=== PATIENT | male | born 1950 | race Caucasian/White ===

== ENCOUNTER 2017-01-06 15:54 | Emergency (ER) | payer BC, OTHER ==
[~2017-01-06] VITALS: Ht 198.1 cm; Wt 106.0 kg
[~2017-01-06 15:54] MED LIST: APIX1TAB3 PO; GABA-113 PO; GLCSR500 PO; IBUP-1050 PO; INSDGI SC; LEVO75TA5 PO; NRN600 PO; NVLGI SC; SIMV40TA2 PO
[2017-01-06 15:57] VITALS: Ht 198.1 cm; Wt 106.0 kg
[2017-01-06] MEDS ORDERED: SODIUM CHLORIDE 0.9% 1000ML 1,000 ML IV STA (16:10)
[2017-01-06 16:13] VITALS: O2SAT 97
[2017-01-06 16:31] LABS: BASO % 0.6 %; BASO ABS # 0.05 K/uL (0-0.2); COMPLETE YES; EOS % 2.3 %; HEMATOCRIT 43.4 % (42-52); IG% 0.1 %; LYMPH % 22.8 %; MEAN CELL VOLUME 91.4 fL (80-100); MEAN PLATELET VOLUME 10.3 fL (7.4-10.4); MONO % 7.7 %; NEUT % 66.5 %; PLATELET COUNT 215 K/uL (130-400); RED BLOOD COUNT 4.75 M/uL (4.7-6.1)
[2017-01-06 16:36] LABS: URINE APPEARANCE TURBID (CLEAR); URINE COLOR RED; URINE NITRITE NEG (NEG); URINE SPECIFIC GRAVITY 1.027 (1.000-1.030); UROBILINOGEN NEG (NEG)
[2017-01-06 16:38] LABS: PROTHROMBIN TIME (PATIENT) 10.9 SECONDS (9.0-12.0)
[2017-01-06 16:47] LABS: BUN/CREATININE RATIO 17.3 (10-20); CALCIUM 9.5 mg/dl (8.5-10.1); CREATININE 1.2 mg/dl (0.60-1.40)
[2017-01-06 16:50] LABS: MANUAL MICROSCOPIC REQUIRED? NO; REVIEW REQ? YES; URINE BILIRUBIN NEG (NEG)
[2017-01-06 16:50] LABS: ALB/GLOB RATIO 1.1 (0.9-2)
[2017-01-06 16:53] LABS: ZZUR CULT IF INDIC CLEAN CATCH YES
[2017-01-06] MEDS ORDERED: INSDGIPEN SC (17:01)
[2017-01-06] MEDS ORDERED: METF1000 PO (17:01)
[2017-01-06] MEDS ORDERED: NRN600 PO (17:01)
--- NOTE | 2017-01-06 17:19 | DIAGNOSTIC IMAGING REPORT ---
ABDOMEN AND PELVIS CT WITHOUT CONTRAST CT DOSE: 1618.20 mGy.cm HISTORY: Hx renal calculi, Painless hematuria, TECHNIQUE: Multiaxial CT images of the abdomen and pelvis were performed without the use of intravenous and oral contrast according to the standard department stone protocol. A dose lowering technique was utilized adhering to the principles of ALARA. COMPARISON STUDY: Abdomen and pelvis CT 10/27/2010. FINDINGS: Mild bibasilar subsegmental atelectasis. Pacemaker wires are noted. No fractures within the visualized osseous structures. The unenhanced liver, gallbladder, pancreas, and adrenal glands are unremarkable. Lobular appearance to the spleen, unchanged. Mild bilateral perinephric edema which is not significantly changed. Multiple bilateral peripelvic renal cysts. There is a punctate stone within the upper pole the left kidney. There is also a 2 mm stone at the left ureteropelvic junction best seen on image 186. No significant left side hydronephrosis. The dominant left peripelvic cyst has decreased in size. Prostate gland is mildly enlarged. Normal bladder. Fat-containing left inguinal hernia, unchanged. Suboptimal evaluation for bowel pathology due to the lack of intravenous and oral contrast. However, there is no definite bowel wall thickening or obstruction. Normal appendix. IMPRESSION: 1. There is a 2 mm stone at the left ureteropelvic junction. However, there is no significant hydronephrosis. Therefore, this favors a nonobstructing stone. 2. There is also a punctate stone within the upper pole of the left kidney. 3. No right renal stones. 4. Bilateral peripelvic renal cysts are again noted. 3. No bowel wall thickening or obstruction. Electronically signed by: Ed Marsh M.D. 01/06/2017 5:18 PM Dictated Date/Time: 01/06/2017 5:10 PM
--- NOTE | 2017-01-06 18:02 | EMERGENCY ROOM VISIT NOTE ---
History First contact with patient: 16:00 Chief Complaint: URINARY SYMPTOMS Stated Complaint: BLOOD IN URINE Nursing Triage Summary: Triage Notes: Patient ambulatory to triage with a steady and upright gait, states "I have blood in my urine that started two days ago. About 30 minutes ago, there was a significant amount. I have had kidney stones in the past." Patient admits that he does take Eliquis. Patient is also a diabetic. History of Present Illness The patient is a 66 year old male who presents to the Emergency Room via private vehicle coming by family with complaints of "blood in urine". The patient states that he has a history of kidney stones, of which he last had 8 years ago. He has been well up until 2 days ago, when he noticed a small amount of blood in his urine. He denies any pain. He states that unfortunately today 0.5 hours prior to arrival he urinated a large amount of bright red blood. He again denies any pain. He is here concerned about what may be causing the bleeding. He notes he takes eliquis for his pacemaker. He denies any aspirin use. Denies any fevers, chills. Review of Systems A complete 10-point Review of Systems was discussed with the patient, with pertinent positives and negatives listed in the History of Present Illness. All remaining Review of Systems questions can be considered negative unless otherwise specified. Past Medical/Surgical History Renal calculi, anticoagulant use, pacemaker Family History Patient reports no known family medical history. No pertinent. Social History Smoking Status: Current Every Day Smoker Drug Use: none Marital Status: Housing Status: lives with family Occupation Status: employed Current/Historical Medications Scheduled Apixaban (Eliquis), 5 MG PO BID Gabapentin (Neurontin), 300 MG PO QAM Gabapentin (Gabapentin), 600 MG PO QPM Insulin Glargine (Lantus Solostar), 22 UNITS SC QPM Levothyroxine Sodium (Levothyroxine Sodium), 1 TAB PO DAILY Metformin Hcl (Glucophage), 1,000 MG PO BID Simvastatin (Zocor), 40 MG PO QPM Physical Exam Vital Signs Date Time Temp Pulse Resp B/P (MAP) Pulse Ox O2 Delivery O2 Flow Rate FiO2 01/06/17 18:24 36.4 83 18 149/79 97 01/06/17 18:23 83 18 149/79 97 Room Air 9/3/17 16:13 97 Room Air 01/06/17 15:57 36.4 83 18 150/78 97 Room Air Physical Exam VITAL SIGNS - Vital signs and nursing notes were reviewed. Afebrile, hypertensive 150/78, non-tachycardic and is saturating well on room air at 97%. GENERAL -66-year-old male appearing his stated age who is in no acute distress. Communicates well with provider and answers questions appropriately. SKIN - Without rashes. No petechial rashes. HEAD - NC/AT. EYES - PERRL with EOMI bilaterally. Sclera anicteric. No hyphema. EARS - No deformities of external structures noted on gross examination bilaterally. No blood from the external ear canals. NOSE - Midline and without cyanosis. No epistaxis or purulent drainage noted. LUNGS - Chest wall symmetric without accessory muscle use, intercostals retractions, or central cyanosis. Normal vesicular breath sounds CTA B/L. No wheezes, rales, or rhonchi appreciated. CARDIAC - RRR with S1/S2. No murmur, rubs, or gallops appreciated. ABDOMEN - Abdominal contour normal without pulsations or visible masses. BS normoactive all four quadrants. No tenderness, palpable masses, hepatosplenomegaly, or ascites noted. No suprapubic tenderness. PSYCH - A&O, and cooperates fully with examiner. Pt is very pleasant and interacts well with examiner. Medical Decision & Procedures ER Provider Diagnostic Interpretation: ABDOMEN AND PELVIS CT WITHOUT CONTRAST CT DOSE: 1618.20 mGy.cm HISTORY: Hx renal calculi, Painless hematuria, TECHNIQUE: Multiaxial CT images of the abdomen and pelvis were performed without the use of intravenous and oral contrast according to the standard department stone protocol. A dose lowering technique was utilized adhering to the principles of ALARA. COMPARISON STUDY: Abdomen and pelvis CT 10/27/2010. FINDINGS: Mild bibasilar subsegmental atelectasis. Pacemaker wires are noted. No fractures within the visualized osseous structures. The unenhanced liver, gallbladder, pancreas, and adrenal glands are unremarkable. Lobular appearance to the spleen, unchanged. Mild bilateral perinephric edema which is not significantly changed. Multiple bilateral peripelvic renal cysts. There is a punctate stone within the upper pole the left kidney. There is also a 2 mm stone at the left ureteropelvic junction best seen on image 186. No significant left side hydronephrosis. The dominant left peripelvic cyst has decreased in size. Prostate gland is mildly enlarged. Normal bladder. Fat-containing left inguinal hernia, unchanged. Suboptimal evaluation for bowel pathology due to the lack of intravenous and oral contrast. However, there is no definite bowel wall thickening or obstruction. Normal appendix. IMPRESSION: 1. There is a 2 mm stone at the left ureteropelvic junction. However, there is no significant hydronephrosis. Therefore, this favors a nonobstructing stone. 2. There is also a punctate stone within the upper pole of the left kidney. 3. No right renal stones. 4. Bilateral peripelvic renal cysts are again noted. 3. No bowel wall thickening or obstruction. Electronically signed by: Ed Marsh M.D. 01/06/2017 5:18 PM Laboratory Results 01/06/17 16:13 Red Blood Count 4.75, Mean Corpuscular Volume 91.4, Mean Corpuscular Hemoglobin 32.0, Mean Corpuscular Hemoglobin Concent 35.0, Mean Platelet Volume 10.3, Neutrophils (%) (Auto) 66.5, Lymphocytes (%) (Auto) 22.8, Monocytes (%) (Auto) 7.7, Eosinophils (%) (Auto) 2.3, Basophils (%) (Auto) 0.6, Neutrophils # (Auto) 5.25, Lymphocytes # (Auto) 1.80, Monocytes # (Auto) 0.61, Eosinophils # (Auto) 0.18, Basophils # (Auto) 0.05 01/06/17 16:13 Test 01/06/17 16:13 01/06/17 16:15 White Blood Count 7.90 K/uL (4.8-10.8) Red Blood Count 4.75 M/uL (4.7-6.1) Hemoglobin 15.2 g/dL (14.0-18.0) Hematocrit 43.4 % (42-52) Mean Corpuscular Volume 91.4 fL (80-100) Mean Corpuscular Hemoglobin 32.0 pg (25-34) Mean Corpuscular Hemoglobin Concent 35.0 g/dl (32-36) Platelet Count 215 K/uL (130-400) Mean Platelet Volume 10.3 fL (7.4-10.4) Neutrophils (%) (Auto) 66.5 % Lymphocytes (%) (Auto) 22.8 % Monocytes (%) (Auto) 7.7 % Eosinophils (%) (Auto) 2.3 % Basophils (%) (Auto) 0.6 % Neutrophils # (Auto) 5.25 K/uL (1.4-6.5) Lymphocytes # (Auto) 1.80 K/uL (1.2-3.4) Monocytes # (Auto) 0.61 K/uL (0.11-0.59) Eosinophils # (Auto) 0.18 K/uL (0-0.5) Basophils # (Auto) 0.05 K/uL (0-0.2) RDW Standard Deviation 42.1 fL (36.4-46.3) RDW Coefficient of Variation 12.4 % (11.5-14.5) Immature Granulocyte % (Auto) 0.1 % Immature Granulocyte # (Auto) 0.01 K/uL (0.00-0.02) Prothrombin Time 10.9 SECONDS (9.0-12.0) Prothromb Time International Ratio 1.0 (0.9-1.1) Activated Partial Thromboplast Time 27.1 SECONDS (21.0-31.0) Partial Thromboplastin Ratio 1.0 Anion Gap 6.0 mmol/L (3-11) Est Creatinine Clear Calc Drug Dose 80.4 ml/min Estimated GFR () 73.6 Estimated GFR (Non- 63.5 BUN/Creatinine Ratio 17.3 (10-20) Calcium Level 9.5 mg/dl (8.5-10.1) Total Bilirubin 0.6 mg/dl (0.2-1) Aspartate Amino Transf (AST/SGOT) 17 U/L (15-37) Alanine Aminotransferase (ALT/SGPT) 23 U/L (12-78) Alkaline Phosphatase 110 U/L (45-117) Total Protein 6.9 gm/dl (6.4-8.2) Albumin 3.6 gm/dl (3.4-5.0) Globulin 3.3 gm/dl (2.5-4.0) Albumin/Globulin Ratio 1.1 (0.9-2) Urine Color RED Urine Appearance TURBID (CLEAR) Urine pH 5.0 (4.5-7.5) Urine Specific [place] 1.027 (1.000-1.030) Urine Protein 2+ (NEG) Urine Glucose (UA) 1+ (NEG) Urine Ketones NEG (NEG) Urine Occult Blood 3+ (NEG) Urine Nitrite NEG (NEG) Urine Bilirubin NEG (NEG) Urine Urobilinogen NEG (NEG) Urine Leukocyte Esterase SMALL (NEG) Urine WBC (Auto) 5-10 /hpf (0-5) Urine RBC (Auto) >30 /hpf (0-4) Urine Hyaline Casts (Auto) 1-5 /lpf (0-5) Urine Epithelial Cells (Auto) 10-20 /lpf (0-5) Urine Bacteria (Auto) 1+ (NEG) Medications Administered Medications (Trade) Dose Ordered Sig/Desiree Route Start Time Stop Time Status Last Admin Dose Admin Sodium Chloride 1,000 ml @ 999 mls/hr Q1H1M STAT IV 01/06/17 16:10 01/06/17 17:10 DC 01/06/17 16:18 999 MLS/HR Medical Decision Patient was seen and evaluated as above. After obtaining a thorough history and physical examination IV access was initiated, and the above workup was performed. He presents to us today with painless hematuria. He has been smoking tobacco from a pipe for many years. It is unlikely that he has bladder cancer. This is mostly be secondary to either a kidney stone that is moving, as well as the increased risk of bleeding with the eliquis. Benefits versus risk of obtaining CT scan was discussed with the patient, and the decision was made to scan. Results as above. There is a small stone in the left UPJ. No hydronephrosis. No acute fat straining. Urinalysis does reveal blood, and a small chance of infection, however I will wait the culture results. He is afebrile at this time. There was no leukocytosis. Coags unremarkable. Patient 's metabolic panel reveals BUN slightly high at 21, and creatinine high at 1.2. Patient is to stay well-hydrated. Random glucose high at 177. Patient's kidney function appears to be stable compared to previous. Urine does reveal 3 + occult blood, small leukocyte esterase, 5-10 white blood cells, greater than 30 red blood cells, 10-20 epithelial cells, and 1+ urine bacteria. Again, I this time we'll await culture results. It is unlikely he is experiencing a UTI , with the finding of the stone. I know upon this, he will be notified if his urine culture reveals any infectious process of which needs to be treated. With the CT showing the stone, I this time believe this is likely irritating ureter, causing the bleeding especially with the eliquis essentially thinning of blood. Patient was educated upon the incidental findings in regard to the CT scan. With stable hemoglobin, there appears to be no need for inpatient management. I do believe that outpatient management is appropriate. At this time the patient will be educated upon worrisome symptoms which to return, had questions of discharge, and was discharged home in good condition. Patient case was discussed with the attending physician. In evaluation treatment this patient following differential diagnoses were entertained: Bladder cancer, renal calculi, supratherapeutic anticoagulation, hemorrhagic cystitis, among others. Impression Primary Impression: Kidney stone on left side Additional Impression: Hematuria Departure Information Dispostion Home / Self-Care Condition GOOD Referrals Ryder Ellison M.D. (PCP) Ryder Davis M.D. Patient Instructions My [facility] Additional Instructions You have been treated in the Emergency Department today for a Kidney Stone ( Nephrolithiasis). You have been provided a strainer and specimen collection cup. You should strain your urine to collect any passed stones. Your stones can be placed into the specimen cup and taken to your Urologist for further evaluation. You have been provided the contact information for the on-call Urologist. You should contact the Urologist's office SATURDAY to establish a follow-up appointment from today's Emergency Department visit. Please continue your regular medications. Please stay well-hydrated. Return to the Emergency Department if your symptoms persist despite the treatment plan outlined above or if you develop the following symptoms: intractable pain, fever, chills, or large amounts of blood in your urine. Problem Qualifiers
[2017-01-06 18:24] VITALS: BP 149/79; PULSE 83; TEMP 36.4; O2SAT 97
== END 2017-01-06 18:25 | disposition home or self-care (01) ==
LOC: C.EDB 15:55 → C.EDC 18:25
DX: N20.0 Calculus of kidney (principal); R31.9 Hematuria, unspecified; Z79.01 Long term (current) use of anticoagulants; Z79.84 Long term (current) use of oral hypoglycemic drugs; Z79.899 Other long term (current) drug therapy; Z87.442 Personal history of urinary calculi; Z95.0 Presence of cardiac pacemaker

== ENCOUNTER → 2017-02-28 | Outpatient (CLI) | payer BC ==
[~2017-02-28] MED LIST changes: -GLCSR500 PO; -IBUP-1050 PO; -INSDGI SC; +INSDGIPEN SC; +METF1000 PO; -NVLGI SC
[2017-02-28 12:40] LABS: BLOOD UREA NITROGEN 16 mg/dl (7-18); BUN/CREATININE RATIO 14.4 (10-20); CALCIUM 9.2 mg/dl (8.5-10.1); CARBON DIOXIDE 30 mmol/L (21-32); CHLORIDE 105 mmol/L (98-107); CREATININE 1.14 mg/dl (0.60-1.40); GLUCOSE 101 mg/dl (70-99); POTASSIUM 4.3 mmol/L (3.5-5.1); SODIUM 141 mmol/L (136-145)
[2017-02-28 12:53] LABS: BASO % 0.5 %; BASO ABS # 0.03 K/uL (0-0.2); COMPLETE YES; EOS % 2.6 %; IG% 0.2 %; LYMPH % 25.7 %; LYMPH ABS # 1.41 K/uL (1.2-3.4); MEAN CELL VOLUME 90.9 fL (80-100); MEAN CORPUSCULAR HEMOGLOBIN 31.6 pg (25-34); MEAN CORPUSCULAR HGB CONC 34.8 g/dl (32-36); MEAN PLATELET VOLUME 10.9 fL (7.4-10.4); MONO % 7.1 %; NEUT % 63.9 %; PLATELET COUNT 230 K/uL (130-400); RED BLOOD COUNT 4.84 M/uL (4.7-6.1); WHITE BLOOD COUNT 5.48 K/uL (4.8-10.8)
== END | disposition home or self-care (01) ==
LOC: C.LABBFT 09:48
PROVIDERS: ATTEND Nurse Practitioner
DX: K62.5 Hemorrhage of anus and rectum (principal)

== ENCOUNTER → 2017-04-03 | Day surgery (SDC) | payer BC ==
[2017-03-20 10:11] VITALS: BMI 28.0
[~2017-04-03] VITALS: Ht 198.1 cm; Wt 112.7 kg
[~2017-04-03] MED LIST changes: +CYAN100020 PO; +ERGO500037 PO; -NRN600 PO; +PROPOFOL IV EMULSION 10 MG/ML 20 ML VIAL IV ONE
[2017-04-03 14:58] VITALS: Ht 198.1 cm; Wt 112.7 kg
--- NOTE | 2017-04-03 15:05 | Endo History and Physical ---
History & Physical Date of Service: Apr 03, 2017. Chief Complaint: rectal bleeding Referring Physician: Dr Ellison History of Present Illness For colonoscopy Past Surgical History Hx Cardiac Surgery: No (HEART CATH-NO STENTS) Hx Internal Defibrillator: No Hx Pacemaker: Yes Hx Abdominal Surgery: No Hx Post-Op Nausea and Vomiting: No Hx Cancer Surgery: No Hx Thoracic Surgery: No Hx Orthopedic: No Hx Urinary Tract Surgery: No Family History None Social History Smoking Status: Current Every Day Smoker Hx Substance Use: No Hx Alcohol Use: Yes (OCCASIONALLY) Allergies Coded Allergies: Penicillins (Verified Allergy, Mild, DIFF. BREATHING, 04/03/17) Current Medications Reported Home Medications Medications Dose Route/Sig Max Daily Dose Days Date Category Vitamin B12 (Cyanocobalamin) 1,000 Mcg Tab 1 Tab PO QPM 03/20/17 Reported Vitamin D 22899 Unit (Ergocalciferol) 50,000 Unit Cap 50,000 Unit PO WK 03/20/17 Reported Neurontin (Gabapentin) 300 Mg Cap 600-900 Mg PO QPM 03/20/17 Reported Glucophage (Metformin Hcl) 1,000 Mg Tab 1,000 Mg PO BID 01/06/17 Reported Lantus Solostar (Insulin Glargine) 100 Unit/Ml Inj 22 Units SC QPM 01/06/17 Reported Eliquis (Apixaban) 5 Mg Tab 5 Mg PO BID 09/20/15 Reported Levothyroxine Sodium 75 Mcg Tab 1 Tab PO QAM 90 09/20/15 Reported Zocor (Simvastatin) 40 Mg Tab 40 Mg PO QPM 05/12/09 Reported Neurontin (Gabapentin) 300 Mg Cap 300 Mg PO QAM 09/11/06 Reported Vital Signs Weight (Kilograms): 112.73 Height (Feet): 6 Height (Inches): 6 Physical Exam General Appearance: WD/WN Respiratory/Chest: Respiratory effort: no dyspnea Cardiovascular: Heart Auscultation: RRR Abdomen: Inspection & Palpation: soft Assessment and Plan Rectal bleeding for colonoscopy
--- NOTE | 2017-04-03 16:01 | Discharge Instructions ---
Endoscopy Patient Instructions Date / Procedure(s) Performed Apr 03, 2017. Colonoscopy Allergy Information Coded Allergies: Penicillins (Verified Allergy, Mild, DIFF. BREATHING, 04/03/17) Discharge Date / Findings Apr 03, 2017. polyp, hemorrhoids Medication Instructions Stopped Medication(s): GLENNLORRAINE PACER Restart Stopped Medication(s): resume eliquis in 2 days Reported Home Medications Medications Dose Route/Sig Max Daily Dose Days Date Category Vitamin B12 (Cyanocobalamin) 1,000 Mcg Tab 1 Tab PO QPM 03/20/17 Reported Vitamin D 04573 Unit (Ergocalciferol) 50,000 Unit Cap 50,000 Unit PO WK 03/20/17 Reported Neurontin (Gabapentin) 300 Mg Cap 600-900 Mg PO QPM 03/20/17 Reported Glucophage (Metformin Hcl) 1,000 Mg Tab 1,000 Mg PO BID 01/06/17 Reported Lantus Solostar (Insulin Glargine) 100 Unit/Ml Inj 22 Units SC QPM 01/06/17 Reported Eliquis (Apixaban) 5 Mg Tab 5 Mg PO BID 09/20/15 Reported Levothyroxine Sodium 75 Mcg Tab 1 Tab PO QAM 90 09/20/15 Reported Zocor (Simvastatin) 40 Mg Tab 40 Mg PO QPM 05/12/09 Reported Neurontin (Gabapentin) 300 Mg Cap 300 Mg PO QAM 09/11/06 Reported Provider Instructions Activity Restrictions - No exercising or heavy lifting for 24 hours. - Do not drink alcohol the day of the procedure. - Do not drive a car or operate machinery until the day after the procedure. - Do not make any important decisions or sign important papers in 24 hours after the procedure. Following Day: - Return to full activity which may include returning to work/school. Diet Start your diet with liquids and light foods (jello, soup, juice, toast). Then eat your usual diet if not nauseated. Treatment For Common After Affects For mild abdominal pain, bloating, or excessive gas: - Rest - Eat lightly - Lie on right side Follow-Up Information Follow-up with DR. GARCIA as scheduled Anesthesia Information What You Should Know You have had a procedure that required some medicine to reduce anxiety and discomfort. This treatment is called moderate sedation. After receiving the treatment, you may be sleepy, but you will be able to breathe on your own. The effects of the treatment may last for several hours. Follow these instructions along with Activity/Diet recommendations noted above: * Do NOT do anything where dizziness or clumsiness would be dangerous. * Rest quietly at home today, then you can be up and about tomorrow. * Have a responsible person stay with you the rest of today. * You may have had an I.V. today. If so, you may take the dressing off later today. Recommendations Call your doctor if: * Trouble breathing * Continuous vomiting for more than 24 hours * Temperature above 101 degrees * Severe abdominal pain or bloating * Pain not relieved by pain medicine ordered * There is increased drainage or redness from any incision * A large amount of rectal bleeding greater than 2-3 tablespoons. (If you had a polyp/s removed or have hemorrhoids, a small amount of blood - from the rectum is to be expected.) * You have any unanswered questions or concerns. IN THE EVENT OF A SERIOUS EMERGENCY, GO TO THE NEAREST EMERGENCY ROOM Your discharge instructions were prepared by provider Simba Najera. Patient Instructions Signature Page Trip Magana Patient (or Guardian) Signature/Date: I have read and understand the instructions given to me by my caregivers. Caregiver/RN/Doctor Signature/Date: The above-named patient and/or guardian has received patient instructions on this date. + Original Patient Signature Page (only) stays with chart. Please make copy for patient.
--- NOTE | 2017-04-03 16:08 | GI REPORT ---
Procedure Date: 04/03/2017 3:41 PM Procedure: Colonoscopy Indications: Rectal bleeding Medicines: Propofol total dose 250 mg IV Complications: No immediate complications. Estimated Blood Loss: Estimated blood loss: none. Procedure: Pre-Anesthesia Assessment: - Prior to the procedure, a History and Physical was performed, and patient medications, allergies and sensitivities were reviewed. The patient's tolerance of previous anesthesia was reviewed. - The risks and benefits of the procedure and the sedation options and risks were discussed with the patient. All questions were answered and informed consent was obtained. After I obtained informed consent, the scope was passed under direct vision. Throughout the procedure, the patient's blood pressure, pulse, and oxygen saturations were monitored continuously. The scope was introduced through the anus and advanced to the terminal ileum. The colonoscopy was performed without difficulty. The patient tolerated the procedure well. The quality of the bowel preparation was excellent. Findings: Non-bleeding internal hemorrhoids were found during endoscopy. The hemorrhoids were mild. A 8 mm polyp was found in the mid transverse colon. The polyp was pedunculated. The polyp was removed with a hot snare. Resection and retrieval were complete. To prevent bleeding post-intervention, one hemostatic clip was successfully placed (MR conditional). There was no bleeding during, and at the end, of the procedure. Estimated blood loss: none. Impression: - Non-bleeding internal hemorrhoids. - One 8 mm polyp in the mid transverse colon, removed with a hot snare. Resected and retrieved. Clip (MR conditional) was placed. Recommendation: - Discharge patient to home (ambulatory). - Continue present medications. - Await pathology results. - Return to primary care physician PRN. - Resume Eliquis (apixaban) at prior dose in 2 days. Simba Najera M.D. Simba Najera MD 04/03/2017 4:07:23 PM This report has been signed electronically. Note Initiated On: 04/03/2017 3:41 PM I attest to the content of the Intraoperative Record and orders documented therein, exceptions below
--- NOTE | 2017-04-03 16:27 | Anesthesiology Progress Note ---
Anesthesia Post Op Note Date & Time Apr 03, 2017 at 16:27 Vital Signs Pain Intensity: 0 Vital Signs Past 12 Hours Date Time Temp Pulse Resp B/P (MAP) Pulse Ox O2 Delivery O2 Flow Rate FiO2 04/03/17 16:19 50 16 142/80 (100) 97 Room Air 04/03/17 16:04 65 16 127/71 (89) 97 Room Air 04/03/17 15:07 36.6 102 16 156/97 (116) 97 Room Air Notes Mental Status: alert / awake / arousable, participated in evaluation Pt Amnestic to Procedure: Yes Nausea / Vomiting: adequately controlled Pain: adequately controlled Airway Patency, RR, SpO2: stable & adequate BP & HR: stable & adequate Hydration State: stable & adequate Anesthetic Complications: no major complications apparent
[2017-04-03 16:34] VITALS: BP 140/79; PULSE 50; O2SAT 97
== END | disposition home or self-care (01) ==
LOC: C.GI 14:12
PROVIDERS: ATTEND Internal Medicine Gastroenterology
DX: K62.5 Hemorrhage of anus and rectum (principal); D12.3 Benign neoplasm of transverse colon; K64.8 Other hemorrhoids; F17.200 Nicotine dependence, unspecified, uncomplicated; Z88.0 Allergy status to penicillin; Z95.0 Presence of cardiac pacemaker; E11.9 Type 2 diabetes mellitus without complications; Z79.4 Long term (current) use of insulin; E03.9 Hypothyroidism, unspecified; Z87.442 Personal history of urinary calculi

== ENCOUNTER → 2017-09-05 | Outpatient (CLI) | payer BC ==
[~2017-09-05] MED LIST changes: -PROPOFOL IV EMULSION 10 MG/ML 20 ML VIAL IV ONE
[2017-09-06 06:09] LABS: HEMOGLOBIN A1C 6.5 % (4.5-5.6)
== END | disposition home or self-care (01) ==
LOC: C.LABBFT 15:21
PROVIDERS: ATTEND Internal Medicine
DX: R97.20 Elevated prostate specific antigen [PSA] (principal); E55.9 Vitamin D deficiency, unspecified; E11.9 Type 2 diabetes mellitus without complications; E03.9 Hypothyroidism, unspecified